=== PATIENT | male | born 1935 | race Caucasian/White ===

== ENCOUNTER → 2016-08-29 | Day surgery (SDC) | payer MEDICARE ==
[~2016-08-29] VITALS: Ht 182.9 cm; Wt 78.0 kg
[~2016-08-29] MED LIST: ASPI81CH CHEW; ATOR40TA16 PO; CODCAP; CYCLOPENTOLATE HCL 1% OPHT SOLN 2 ML BTL ONE; FLURBIPROFEN 0.03% OPHT SOLN 2.5 ML BTL ONE; HYALURONIDASE/LIDOCAINE/EPINEPHRINE/BUPIVACAINE 6 ML SYR ONE; LIDOCAINE HCL 1% 30 ML VIAL ONE; MIDAZOLAM HCL 2 MG/2 ML VIAL ONE; OMEP20CA2; PHENYLEPHRINE HCL 10% OPTH SOLN 5 ML BTL ONE; POTA-163 PO; PROPARACAINE HCL 0.5% OPHT SOLN 15 ML BTL ONE; PROPOFOL 200 MG/20 ML AMP ONE; SODIUM CHLORID 0.9% 500 ML INJ 500 ML ONE; TAMS0.4C4 PO; TROPICAMIDE 1% OPHT SOLN 15 ML BTL ONE; VITA400T2
[2016-08-29 07:15] VITALS: BP 155/86; PULSE 79; RESP 16; TEMP 98.5; O2SAT 94
[2016-08-29 07:20] VITALS: PULSE 79
[2016-08-29 08:07] VITALS: PULSE 72
[2016-08-29] MEDS: TOBRAMYCIN/DEXAMETHASONE OPTH OINT 3.5 GM TUBE ONE ×2 (09:06→09:20)
[2016-08-29 09:25] VITALS: PULSE 71; RESP 18; TEMP 98.9; O2SAT 96
[2016-08-29 09:50] VITALS: BP 186/87
--- NOTE | 2016-08-30 15:31 | MP ---
cc: DIMAS ALEX M.D. Corrected Copy: 09/10/16 [facility] NUMBER: [id number] DATE OF SURGERY: 08/29/2016 PREOPERATIVE DIAGNOSIS: Visually significant cataract left eye. POSTOPERATIVE DIAGNOSIS: Visually significant cataract left eye. OPERATION: Phacoemulsification with posterior chamber lens implantation, left eye. SURGEON: Dimas Alex MD ANESTHESIA: Retrobulbar with MAC. COMPLICATIONS: None. PROCEDURE: After informed consent was obtained, the patient was brought into the operative suite and placed on appropriate monitors by the Anesthesia Service. The patient had received a prior retrobulbar injection of local anesthetic by the Anesthesia Service in the holding area. The patient's operative eye was then prepped and draped in the usual sterile fashion. A wire lid speculum was placed. A paracentesis incision was made in the peripheral cornea with a 1 mm blaze keratome. The anterior chamber was filled with viscoelastic. The anterior chamber was then entered through a stepped, clear corneal incision using a sharp 3 mm blaze keratome. A circular tear capsulorrhexis was then made with a bent needle cystitome. Following hydrodissection of the lens nucleus with balanced saline, phaco-emulsification of the nucleus was performed using a modified chopping technique. The remaining cortex was removed with irrigation/aspiration. The prior two procedures were both performed using the handpieces of the [employer] phaco unit. The capsular bag was then filled with viscoelastic. The intraocular lens was then injected into the capsular bag and positioned. The type of intraocular lens and its power can be found elsewhere in this chart. The remaining viscoelastic was then removed from the anterior chamber with the IA handpiece. The anterior chamber was reformed with balanced saline. The wound was then closed securely with stromal hydration. It was found to be watertight to an intraocular pressure of at least 30 mmHg by palpation. A small amount of balanced salt solution was then removed through the paracentesis site and the intraocular pressure at the end of the case was approximately 20 by palpation. All drapes were then removed. TobraDex ointment was then placed in the eye, which was closed beneath a semi-pressure patch dressing. The patient tolerated this procedure well and left the operating room awake and alert. The patient is to follow-up in my office in the morning. ADDENDUM: Due to the patients poorly dilating pupil and history of Flomax use, a Malyugin ring was used to promote and maintain pupillary mydriasis during phacoemulsification and lens implantation. MD KATALINA Beard/miriam /9:47 AM /10:01 AM
== END | disposition home or self-care (01) ==
LOC: CSDC 06:32
PROVIDERS: ATTEND Optometrist Occupational Vision
DX: H25.812 Combined forms of age-related cataract, left eye (principal)
CPT/HCPCS: 00142; 66984; J2250; J7040; V2632